=== PATIENT | female | born 1935 | race Native Hawaiian/Other Pacific Islander ===

== ENCOUNTER 2019-03-05 15:29 | Outpatient (CLI) | payer OTHER | END 2019-03-05 15:49 | disposition short-term general hospital (02) | LOC: AMB 15:29 | DX: R11.10 Vomiting, unspecified (principal); R55 Syncope and collapse | CPT/HCPCS: A0425; A0427 ==

== ENCOUNTER 2019-03-05 15:50 | Emergency (ER) | payer OTHER ==
[~2019-03-05] VITALS: Ht 157.5 cm; Wt 59.0 kg
[2019-03-05 15:50] VITALS: TEMP 97.8
[2019-03-05 16:24] LABS: PLATELET COUNT 165 K/uL (152-353)
[2019-03-05 16:28] LABS: POTASSIUM 3.1 mmol/L (3.6-5.2); SODIUM 145 mmol/L (136-145)
[2019-03-05 16:38] LABS: PARTIAL THROMBOPLASTIN TIME 21.2 SECONDS (24.5-33.6)
[2019-03-05 18:47] VITALS: BP 126/88
== END 2019-03-05 18:42 | disposition home or self-care (01) ==
LOC: ED 16:03
PROVIDERS: Hospitalist
DX: E86.0 Dehydration (principal); R55 Syncope and collapse; E87.6 Hypokalemia; R53.1 Weakness
CPT/HCPCS: 80053; 80307; 80320; 81000; 82550; 83880; 84484; 85027; 85379; 85610; 85730; 87086; 87088; 93005; 96360; 96375; 99284; J2405